=== PATIENT | male | born 1990 | race Caucasian/White ===

== ENCOUNTER 2024-11-04 13:25 | Outpatient (CLI) | payer BC | END 2024-11-04 13:26 | disposition home or self-care (01) | LOC: CSHWCC 13:25 | PROVIDERS: ATTEND Nurse Practitioner Family | DX: L97.212 Non-pressure chronic ulcer of right calf with fat layer exposed (principal); L97.222 Non-pressure chronic ulcer of left calf with fat layer exposed; F19.10 Other psychoactive substance abuse, uncomplicated | CPT/HCPCS: 11042; 11045; 99213; G0463 ==

== ENCOUNTER 2024-11-24 15:33 | Outpatient (CLI) | payer BC | END 2024-11-24 15:34 | disposition home or self-care (01) | LOC: CSHWCC 15:33 | PROVIDERS: ATTEND Nurse Practitioner Family | DX: L97.212 Non-pressure chronic ulcer of right calf with fat layer exposed (principal); L97.222 Non-pressure chronic ulcer of left calf with fat layer exposed; F19.10 Other psychoactive substance abuse, uncomplicated | CPT/HCPCS: 11042; 11045 ==

== ENCOUNTER 2024-12-01 15:24 | Outpatient (CLI) | payer BC | END 2024-12-01 15:25 | disposition home or self-care (01) | LOC: CSHWCC 15:24 | PROVIDERS: ATTEND Nurse Practitioner Family | DX: L97.212 Non-pressure chronic ulcer of right calf with fat layer exposed (principal); L97.222 Non-pressure chronic ulcer of left calf with fat layer exposed; F19.10 Other psychoactive substance abuse, uncomplicated | CPT/HCPCS: 11042; 11045 ==